=== PATIENT | male | born 1995 | race Caucasian/White ===

== ENCOUNTER 2016-10-13 16:07 | Emergency (ER) | payer OTHER ==
[~2016-10-13] VITALS: Ht 177.8 cm; Wt 89.5 kg
[2016-10-13 16:08] VITALS: TEMP 36.6; Ht 177.8 cm; Wt 89.5 kg
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
--- NOTE | 2016-10-13 16:54 | DIAGNOSTIC IMAGING REPORT ---
CT OF THE HEAD WITHOUT CONTRAST CLINICAL HISTORY: Fall with head injury. COMPARISON STUDY: No previous studies for comparison. TECHNIQUE: Helical axial images of the head were obtained without IV contrast. Automated exposure control was utilized for the study. FINDINGS: No acute intracranial hemorrhage, midline shift or mass effect is present. Ventricular system is normal. The basilar cisterns are patent. There are no extra-axial collections. Martinez-white differentiation is maintained. No calvarial fracture is present. Right periorbital/supraorbital contusions are present. Globes are intact. IMPRESSION: 1. No acute intracranial findings. 2. Right periorbital/supraorbital contusions. No calvarial fracture. Globes intact. Electronically signed by: Efren Castillo M.D. 10/13/2016 4:51 PM Dictated Date/Time: 10/13/2016 4:46 PM
--- NOTE | 2016-10-13 17:02 | DIAGNOSTIC IMAGING REPORT ---
MAXILLOFACIAL CT WITHOUT CONTRAST CLINICAL HISTORY: Fall, right sided facial contusion. COMPARISON STUDY: None. TECHNIQUE: A maxillofacial CT was performed without IV contrast. Coronal and sagittal reformats were viewed. FINDINGS: Right facial and supraorbital contusions are present. The globes are intact. Alignment of the temporomandibular joints is anatomic. There is no acute fracture. There is no retrobulbar hematoma. Mild mucosal thickening of the maxillary and sphenoid sinuses is noted. IMPRESSION: No acute facial fracture. Electronically signed by: Efren Castillo M.D. 10/13/2016 5:00 PM Dictated Date/Time: 10/13/2016 4:53 PM
[2016-10-13 17:46] VITALS: BP 156/95; PULSE 67; O2SAT 95
[2016-11-18] MEDS ORDERED: CLON0.5T3 PO (16:40)
[2016-11-18] MEDS ORDERED: SERT-234 PO (16:40)
== END 2016-10-13 17:59 | disposition home or self-care (01) ==
LOC: C.EDB 16:08 → C.EDD 17:59
DX: S00.83XA Contusion of other part of head, initial encounter (principal); S09.90XA Unspecified injury of head, initial encounter; Y04.0XXA Assault by unarmed brawl or fight, initial encounter

== ENCOUNTER 2016-11-18 16:50 | Emergency (ER) | payer OTHER ==
[~2016-11-18] VITALS: Ht 177.8 cm; Wt 93.1 kg
[~2016-11-18 16:50] MED LIST: CLON0.5T3 PO; SERT-234 PO
[2016-11-18 17:00] VITALS: TEMP 36.8; Ht 177.8 cm; Wt 93.1 kg
[2016-11-18 18:40] LABS: BASO % 0.5 %; BASO ABS # 0.04 K/uL (0-0.2); COMPLETE YES; EOS % 2.2 %; HEMATOCRIT 46.2 % (42-52); IG% 0.1 %; LYMPH % 25.4 %; MEAN CORPUSCULAR HEMOGLOBIN 30.3 pg (25-34); MEAN CORPUSCULAR HGB CONC 34.8 g/dl (32-36); MEAN PLATELET VOLUME 9.7 fL (7.4-10.4); MONO % 10.3 %; NEUT % 61.5 %; PLATELET COUNT 284 K/uL (130-400); RED BLOOD COUNT 5.31 M/uL (4.7-6.1); WHITE BLOOD COUNT 7.88 K/uL (4.8-10.8)
--- NOTE | 2016-11-18 18:40 | DIAGNOSTIC IMAGING REPORT ---
CHEST ONE VIEW PORTABLE CLINICAL HISTORY: Chest pain. COMPARISON STUDY: No previous studies for comparison. FINDINGS: Lung volumes are normal. There is no pneumothorax or pleural effusion. Cardiac size is normal. Mediastinal contours are normal. There is no evidence of pulmonary edema. IMPRESSION: No acute cardiopulmonary findings. Electronically signed by: Efren Castillo M.D. 11/18/2016 6:39 PM Dictated Date/Time: 11/18/2016 6:38 PM
[2016-11-18 18:56] LABS: ALT/SGPT 41 U/L (12-78); BLOOD UREA NITROGEN 15 mg/dl (7-18); BUN/CREATININE RATIO 14.6 (10-20); CALCIUM 9.2 mg/dl (8.5-10.1); CARBON DIOXIDE 31 mmol/L (21-32); CHLORIDE 101 mmol/L (98-107); GLUCOSE 93 mg/dl (70-99); POTASSIUM 3.9 mmol/L (3.5-5.1); SODIUM 137 mmol/L (136-145)
[2016-11-18 19:01] LABS: ALKALINE PHOSPHATASE 84 U/L (45-117); AST/SGOT 33 U/L (15-37)
--- NOTE | 2016-11-18 19:33 | EMERGENCY ROOM VISIT NOTE ---
History First contact with patient: 17:27 Chief Complaint: BACK PAIN Stated Complaint: BACK PAIN,L SIDE PAIN History of Present Illness The patient is a 21 year old male who presents to the Emergency Room with complaints of left-sided chest pain which began this morning when he woke up. The patient states that he has had intermittent pain in his left anterior ribs beginning today. He also has some pain in the right side of his low back, which is not unusual for him. The patient is unsure if he fell or injured himself, as he was drinking alcohol this weekend. The patient states that the pain in the left ribs is worse when he breathes in. He rates the discomfort a 5 /10 and has not taken any medication for the pain. He denies any cough, shortness of breath, abdominal pain, nausea, vomiting, numbness, weakness, fevers or chills. Review of Systems A complete 10-point Review of Systems was discussed with the patient, with pertinent positives and negatives listed in the History of Present Illness. All remaining Review of Systems questions can be considered negative unless otherwise specified. Social History Smoking Status: Never Smoker Current/Historical Medications Scheduled Clonazepam (Klonopin), 0.5 MG PO DAILY Sertraline (Zoloft), 150 MG PO DAILY Allergies Coded Allergies: No Known Allergies (Unverified , 10/13/16) Physical Exam Vital Signs Date Time Temp Pulse Resp B/P Pulse Ox O2 Delivery O2 Flow Rate FiO2 11/18/16 20:03 76 18 154/89 100 11/18/16 17:00 36.8 82 16 167/95 99 Room Air Physical Exam VITALS: Vitals are noted on the nurse's note and reviewed by myself. Vital signs stable. GENERAL: This is a 21-year-old male, in no acute distress, nondiaphoretic, well- developed well-nourished. SKIN: Capillary reflex less than 2 seconds. No rashes or ecchymosis. HEENT: Normocephalic. PERRLA. EOMI. Nares patent. Mucous membranes moist. Neck is supple without nuchal rigidity. HEART: Regular rate and rhythm without murmurs gallops or rubs. LUNGS: Clear to auscultation bilaterally without wheezes, rales or rhonchi. No retractions or accessory muscle use. ABDOMEN: Positive bowel sounds x 4. Soft, nontender to palpation. MUSCULOSKELETAL: No tenderness over the ribs. NEURO: Patient was alert and oriented to person place and time. Medical Decision & Procedures ER Provider Diagnostic Interpretation: CHEST ONE VIEW PORTABLE CLINICAL HISTORY: Chest pain. COMPARISON STUDY: No previous studies for comparison. FINDINGS: Lung volumes are normal. There is no pneumothorax or pleural effusion. Cardiac size is normal. Mediastinal contours are normal. There is no evidence of pulmonary edema. IMPRESSION: No acute cardiopulmonary findings. Laboratory Results 11/18/16 18:25 Red Blood Count 5.31, Mean Corpuscular Volume 87.0, Mean Corpuscular Hemoglobin 30.3, Mean Corpuscular Hemoglobin Concent 34.8, Mean Platelet Volume 9.7, Neutrophils (%) (Auto) 61.5, Lymphocytes (%) (Auto) 25.4, Monocytes (%) (Auto) 10.3, Eosinophils (%) (Auto) 2.2, Basophils (%) (Auto) 0.5, Neutrophils # (Auto ) 4.85, Lymphocytes # (Auto) 2.00, Monocytes # (Auto) 0.81, Eosinophils # (Auto ) 0.17, Basophils # (Auto) 0.04 11/18/16 18:25 Test 11/18/16 18:25 White Blood Count 7.88 K/uL (4.8-10.8) Red Blood Count 5.31 M/uL (4.7-6.1) Hemoglobin 16.1 g/dL (14.0-18.0) Hematocrit 46.2 % (42-52) Mean Corpuscular Volume 87.0 fL (80-100) Mean Corpuscular Hemoglobin 30.3 pg (25-34) Mean Corpuscular Hemoglobin Concent 34.8 g/dl (32-36) Platelet Count 284 K/uL (130-400) Mean Platelet Volume 9.7 fL (7.4-10.4) Neutrophils (%) (Auto) 61.5 % Lymphocytes (%) (Auto) 25.4 % Monocytes (%) (Auto) 10.3 % Eosinophils (%) (Auto) 2.2 % Basophils (%) (Auto) 0.5 % Neutrophils # (Auto) 4.85 K/uL (1.4-6.5) Lymphocytes # (Auto) 2.00 K/uL (1.2-3.4) Monocytes # (Auto) 0.81 K/uL (0.11-0.59) Eosinophils # (Auto) 0.17 K/uL (0-0.5) Basophils # (Auto) 0.04 K/uL (0-0.2) RDW Standard Deviation 43.4 fL (36.4-46.3) RDW Coefficient of Variation 13.5 % (11.5-14.5) Immature Granulocyte % (Auto) 0.1 % Immature Granulocyte # (Auto) 0.01 K/uL (0.00-0.02) D-Dimer 350 ug/L FEU (0-500) Anion Gap 5.0 mmol/L (3-11) Est Creatinine Clear Calc Drug Dose 135.1 ml/min Estimated GFR () 125.0 Estimated GFR (Non- 107.9 BUN/Creatinine Ratio 14.6 (10-20) Calcium Level 9.2 mg/dl (8.5-10.1) Total Bilirubin 0.4 mg/dl (0.2-1) Direct Bilirubin 0.1 mg/dl (0-0.2) Aspartate Amino Transf (AST/SGOT) 33 U/L (15-37) Alanine Aminotransferase (ALT/SGPT) 41 U/L (12-78) Alkaline Phosphatase 84 U/L (45-117) Troponin I < 0.015 ng/ml (0-0.045) Total Protein 7.8 gm/dl (6.4-8.2) Albumin 3.9 gm/dl (3.4-5.0) Lipase 112 U/L (73-393) ECG Rate (beats per minute): 63 Rhythm: normal sinus Findings: no acute ischemic change, no ectopy Comparison ECG Date: no prior available Medical Decision Differential diagnosis includes contusion, acute coronary syndrome, pulmonary embolism, pneumothorax, pericarditis, myocarditis, endocarditis, anxiety, musculoskeletal pain, GERD, costochondritis, among others. The patient was evaluated as above. Labs were drawn and IV access was obtained. Imaging studies were performed and read by radiology as above. The patient was reassessed multiple times during their stay in the emergency department and remained in stable condition. The patient is a 21-year-old male who presents today complaining of with left- sided chest/rib pain. Labs revealed no leukocytosis, anemia or concerning electrolyte abnormalities. EKG was interpreted by myself and showed a normal sinus rhythm. Chest x-ray was unremarkable. The patient's pain is likely musculoskeletal. He was instructed to follow-up with [facility] services as needed. Based on the patient's presentation, lab results, and imaging studies, I feel the patient is stable for outpatient treatment. Discharge instructions were reviewed with the patient. The patient verbalized understanding of my assessment and treatment plan and was discharged home in good condition. Impression Primary Impression: Non-cardiac chest pain Departure Information Dispostion Home / Self-Care Condition GOOD Referrals No Doctor, Assigned (PCP) Patient Instructions My [facility] Additional Instructions You have been treated in the Emergency Department for your Non-Cardiac Chest Pain. Laboratory results and Imaging Studies have ruled out any cardiac or pulmonary cause of your chest pain. For pain control, you can use the following [id number] medicines (if >12 yo): - Regular strength (325mg/tab) Tylenol (acetaminophen) 2 tabs every 4-6 hours as needed. Do not exceed 12 tablets in a 24 hour period. Avoid taking more than 4 grams (4000 mg) of Tylenol per day. This includes any other sources of acetaminophen you may take on a regular basis. - Regular strength (200 mg/tab) Advil (ibuprofen) 1-2 tabs every 4-6 hours as needed. Do not exceed a dose of 3200 mg per day. You should schedule a follow-up appointment with your Primary Care Provider in 2 -3 days for further evaluation from today's Emergency Department visit. Return to the Emergency Department if your current symptoms worsen despite treatment course outlined above, or if you develop any of the following symptoms : worsening chest pain, associated jaw/arm pain, nausea, dizziness, shortness of breath, bloody cough, or fainting.
[2016-11-18 20:03] VITALS: BP 154/89; PULSE 76; O2SAT 100
== END 2016-11-18 20:04 | disposition home or self-care (01) ==
LOC: C.EDB 16:51 → C.EDD 20:04
DX: R07.9 Chest pain, unspecified (principal); Z79.899 Other long term (current) drug therapy

== ENCOUNTER → 2017-07-02 | Outpatient (CLI) | payer OTHER ==
[~2017-07-02] MED LIST changes: +SINCALIDE INJ 1.9 MCG in SODIUM CHLORIDE 0.9% 100ML 100 ML IV ONE
--- NOTE | 2017-07-02 10:09 | DIAGNOSTIC IMAGING REPORT ---
NUCLEAR HEPATOBILIARY SCAN WITH EJECTION FRACTION IMAGING CLINICAL HISTORY: Right upper quadrant abdominal pain. COMPARISON STUDY: No priors. TECHNIQUE: Dynamic images of the liver and anterior abdomen were obtained every 5 minutes for a total of 60 minutes following the IV administration of 5.4mCi of technetium 99m Choletec. 1.9 mcg of sincalide was then injected with additional images acquired every 5 minutes for 45 minutes to calculate the gallbladder ejection fraction. FINDINGS: The hepatobiliary scan shows prompt and homogeneous hepatic uptake. There is visualized activity within the intra and extrahepatic biliary tree at 5 minutes, and within the gallbladder at 5 minutes. There is normal biliary to bowel transit, with small bowel visualized by 20 minutes. On the sincalide imaging, the gallbladder ejection fraction was measured at 99%. IMPRESSION: 1. Unremarkable nuclear hepatobiliary scan. There is no scintigraphic evidence of cholecystitis. 2. The gallbladder ejection fraction measured 99% which is normal. Electronically signed by: Amando Ortiz M.D. 07/02/2017 10:08 AM Dictated Date/Time: 07/02/2017 10:06 AM
== END | disposition home or self-care (01) ==
LOC: C.NUCL 08:02
PROVIDERS: ATTEND Family Medicine
DX: R10.11 Right upper quadrant pain (principal)